=== PATIENT | male | born 1975 | race Caucasian/White ===

== ENCOUNTER 2019-01-30 04:52 | Inpatient (IN) ==
[2019-01-30] MEDS ORDERED: ASPIRIN PR ONE (06:07)
[2019-01-30] MEDS ORDERED: ASPIRIN PO ONE (06:07)
[2019-01-30 06:39] LABS: BASO# 0.03 X1000 (0.0-0.2); BASO% 0.5 % (0.0-0.8); EOS% 1.5 % (0.0-10.0); HEMATOCRIT 33.8 % (42.0-52.0); HEMOGLOBIN 10.3 g/dL (14.0-18.0); IMM GRAN# 0.02 X1000 (0.0-0.04); IMM GRAN% 0.3 % (0.0-0.5); LYMPH# 1.72 X1000 (1.2-3.4); LYMPH% 26.5 % (20.5-51.1); MCH 27.4 PG (27-31); MCHC 30.5 g/dL (33-37); MCV 89.9 FL (81-99); MONO# 0.32 X1000 (0.11-0.59); MONO% 4.9 % (1.7-9.3); MPV 10.9 FL (7.4-10.4); NEUT% 66.3 % (42.2-75.2); PLT 353 X1000 (130-400); RBC 3.76 XMIL (4.7-6.1); RDW 19.9 % (11.5-14.5); WBC 6.49 X1000 (4.8-10.8)
[2019-01-30 06:55] LABS: PTT 31.6 Seconds (22.3-41.8)
--- NOTE | 2019-01-30 07:00 | Diag Imaging Result Doc PS360 ---
EXAM: CHEST-2 VIEWS 01/30/2019 HISTORY: sob TECHNIQUE: PA and lateral chest COMMENT: There are bilateral pleural fluid collections. There is atelectasis and/or pneumonia in both lower lobes. This has not changed significantly since 01/29/2019. IMPRESSION: Bilateral pleural effusions and basilar atelectasis versus pneumonia. Electronically signed by Miah Connell 01/30/2019 6:58 AM
[2019-01-30 07:06] LABS: AGAP 12; ALB/GLOB RATIO 0.8; ALBUMIN 3.2 g/dL (3.5-5.0); ALKALINE PHOSPHATASE 129 U/L (32-122); BUN 23 mg/dL (8-22); CALCIUM 8.7 mg/dL (8.8-10.2); CHLORIDE 106 mmol/L (98-107); CK PROFILE 79 U/L (24-204); COSMO 291; CREATININE 1.1 mg/dL (0.7-1.2); ESTIMATED GFR > 60; GLUCOSE 132 mg/dL (70-104); GOT 19 U/L (10-34); GPT 13 U/L (10-44); POTASSIUM 3.8 mmol/L (3.5-5.1); SODIUM 143 mmol/L (136-145); TCO2 25 mmol/L (25-35); TOTAL BILIRUBIN 0.16 mg/dL (0.20-1.00); TOTAL PROTEIN 7.1 g/dL (6.3-8.3)
--- NOTE | 2019-01-30 07:13 | EKG Report ---
Test Performed on : 01/30/2019 05:00:52 AM Test Reason : SOB Blood Pressure : / mmHG Vent. Rate : 108 BPM Atrial Rate : 108 BPM P-R Int : 144 ms QRS Dur : 090 ms QT Int : 362 ms P-R-T Axes : 054 082 093 degrees QTc Int : 485 ms Sinus tachycardia. with occasional premature ventricular complexes. Possible Left atrial enlargement Anterior infarct , age undetermined Abnormal ECG When compared with ECG of 29-JAN-2019 01:22, (Unconfirmed) premature ventricular complexes. are now present Unconfirmed Result
[2019-01-30] MEDS ORDERED: LASIX IV ONE (08:15)
--- NOTE | 2019-01-30 08:24 | PROVIDER DOCUMENTATION ---
HPI-Respiratory General - General Chief Complaint: Shortness of Breath Stated Complaint: SHORTNESS OF BREATH Time Seen by Provider: 01/30/19 08:10 Source: patient Allergies/Adverse Reactions: Patient Allergies Allergy/AdvReac Type Severity Reaction Status Date / Time No Known Allergies Allergy Verified 01/30/19 05:16 Home Medications: Home Medication List Medication Instructions Recorded Confirmed Last Taken Type Fenofibrate [Tricor] 145 mg PO QHS #90 tab 01/05/19 01/30/19 Unknown Rx Folic Acid 1 mg PO DAILY #90 tab 01/05/19 01/30/19 Unknown Rx Insulin Humulin 70/30 [Humulin 10 unit SUBQ QPM #1 insuln.pen 01/05/19 01/30/19 Unknown Rx 70/30] Insulin Humulin 70/30 [Humulin 25 unit SUBQ ACB #1 insuln.pen 01/05/19 01/30/19 Unknown Rx 70/30] Multivitamins/Minerals [Centrum 1 ea PO DAILY #100 tab 01/05/19 01/30/19 Unknown Rx Silver] Omeprazole [Prilosec] 40 mg PO DAILY #90 cap 01/05/19 01/30/19 Unknown Rx Furosemide [Lasix] 20 mg PO DAILY #10 tab 01/29/19 01/30/19 Unknown Rx - History of Present Illness-Resp Nature of Presenting Problem: edema and orthopnea and sob worsening over past 2 weeks. got lasix 20mg/day here at ER 2 days ago: no better. DM-1 hospitalization 3 wk ago. BS have been better since w/ max BS 240 and usually 130-140. orthopnea with pressure or pulling in sternal chest w/ attempt to supine so no sllep in 2 days unless sits straight up. no fever Review of Systems - Adult - REVIEW OF SYSTEMS - ADULT Constitutional: reports: no symptoms reported, fatique. denies: fever, night sweats Eyes: reports: no symptoms reported Ears, Nose, Mouth & Throat: reports: no symptoms reported Cardiovascular: reports: no symptoms reported, see HPI, edema, palpitations Respiratory: reports: dyspnea on exertion, shortness of breath Gastrointestinal: reports: no symptoms reported Genitourinary: reports: no symptoms reported Musculoskeletal: reports: no symptoms reported Integumentary: reports: no symptoms reported Neurological: reports: no symptoms reported Psychiatric: reports: no symptoms reported Endocrine: reports: no symptoms reported Hematologic/Lymphatic: reports: no symptoms reported Allergic/Immunologic: reports: no symptoms reported All Other Systems: Reviewed and Negative Past History - Adult - PAST MEDICAL HISTORY-ADULT Review of Records: reports: Old Records Reviewed, Nursing Assessment Review, Medications Reviewed, Social history reviewed & non-contributory. Major Childhood Illnesses: reports: denies history Cardiovascular: reports: denies history Respiratory: reports: denies history Gastrointestinal: reports: denies history Obstetrical/Gynecological: reports: denies history Genitourinary: reports: denies history Musculoskeletal: reports: denies history Neurological: reports: denies history Endocrine/Immune: reports: denies history Other Conditions: reports: denies history - IMMUNIZATION STATUS Childhood Immunizations: See Nurse Assessment Flu Vaccine: See Nurse Assessment - FAMILY HISTORY Family History: reviewed, not pertinent Physical Exam-General - PHYSICAL EXAM-ADULT Initial Vital Signs Reviewed: Yes - CONSTITUTIONAL General Appearance: alert, no apparent distress - EYES Eyes: PERRL/EOMI - HEAD, EARS, NOSE, MOUTH & THROAT HENMT: moist mucous membranes - NECK Neck: full range of motion - RESPIRATORY Respiratory: lungs clear, no accessory muscle use, other (UPPER LUNGS FIELD CLEAR, LOWER MAHMOOD DULL, CAPRICE ON RIGHT) - CARDIOVASCULAR Cardiovascular: regular rate, rhythm, tachycardia, other (PMI HEAVE) - GASTROINTESTINAL (ABDOMEN) Abdominal Exam: non tender, soft, no organomegaly - MUSCULOSKELETAL Extremity: non-tender, normal gait, pedal edema - SKIN Integumentary: normal color, normal turgor, warm/dry - 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 as 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, grossly normal, no motor/sensory deficits - PSYCHIATRIC Psych/Mental Status: normal mood/affect, normal thought content, normal thought process, oriented x 3 Progress - PLAN OF CARE/RESULTS Progress/Plan/Lab Results: Vital Signs - 8 hr 01/30/19 05:08 Temperature 98.3 F Pulse Rate 114 H Respiratory Rate 20 Blood Pressure 115/105 O2 Sat by Pulse Oximetry 98 Laboratory Results - last 24 hr 01/30/19 01/30/19 01/30/19 05:32 05:32 05:32 WBC 6.49 RBC 3.76 L Hgb 10.3 L Hct 33.8 L MCV 89.9 MCH 27.4 MCHC 30.5 L RDW Std Deviation 19.9 H Plt Count 353 MPV 10.9 H Immature Gran % (Auto) 0.3 Neut % (Auto) 66.3 Lymph % (Auto) 26.5 [place] % (Auto) 4.9 Eos % (Auto) 1.5 Baso % (Auto) 0.5 Immature Gran # (Auto) 0.02 Neut # (Auto) 4.30 Lymph # (Auto) 1.72 [place] # (Auto) 0.32 Eos # (Auto) 0.10 Baso # (Auto) 0.03 PT INR PTT (Actin FS) Sodium 143 Potassium 3.8 Chloride 106 Carbon Dioxide 25 Anion Gap 12 BUN 23 H Creatinine 1.1 Estimated GFR/1.73 m2 > 60 BUN/Creatinine Ratio 21 Glucose 132 H Calculated Osmolality 291 Calcium 8.7 L Total Bilirubin 0.16 L AST 19 ALT 13 Alkaline Phosphatase 129 H Creatine Kinase 79 Troponin T Mut-M-Cehugmloepq Pept 33321 H Total Protein 7.1 Albumin 3.2 L Globulin 3.9 Albumin/Globulin Ratio 0.8 01/30/19 01/30/19 05:32 05:32 WBC RBC Hgb Hct MCV MCH MCHC RDW Std Deviation Plt Count MPV Immature Gran % (Auto) Neut % (Auto) Lymph % (Auto) [place] % (Auto) Eos % (Auto) Baso % (Auto) Immature Gran # (Auto) Neut # (Auto) Lymph # (Auto) [place] # (Auto) Eos # (Auto) Baso # (Auto) PT 14.0 INR 1.00 PTT (Actin FS) 31.6 Sodium Potassium Chloride Carbon Dioxide Anion Gap BUN Creatinine Estimated GFR/1.73 m2 BUN/Creatinine Ratio Glucose Calculated Osmolality Calcium Total Bilirubin AST ALT Alkaline Phosphatase Creatine Kinase Troponin T 0.020 Xfm-U-Zkiwrlcdtsz Pept Total Protein Albumin Globulin Albumin/Globulin Ratio Orders Category Date Time Status Admit - [facility] Routine AdmDCTranf 01/30/19 10:00 Active Activity - Up with Assistance ORDERED Care 01/30/19 10:00 Active Apply Mechanical Device [QM] ORDERED Care 01/30/19 10:00 Active Cardiac Monitoring DIRECTED Care 01/30/19 06:08 Completed FSBS/Accucheck Result AC + HS Care 01/30/19 10:00 Active Intake and Output-Strict ORDERED Care 01/30/19 10:00 Active Oxygen Therapy- ED Nursing DIRECTED Care 01/30/19 06:08 Completed Saline Loc NOW Care 01/30/19 06:08 Completed Saline Loc NOW Care 01/30/19 08:15 Completed Vital Signs Order Q 4-HR ASSESS Care 01/30/19 10:00 Active Z-Document. for Tele Applied ORDERED Care 01/30/19 10:00 Active Heart Healthy Diet Diet 01/30/19 10:01 Active CHEST-2 VIEWS [RAD] DAILY Exams 01/31/19 06:00 Ordered CHEST-2 VIEWS [RAD] DAILY Exams 02/01/19 06:00 Ordered CHEST-2 VIEWS [RAD] DAILY Exams 02/02/19 06:00 Ordered CHEST-2 VIEWS [RAD] Stat Exams 01/30/19 06:08 Completed BASIC METABOLIC PANEL [CHEM] Routine Lab 01/31/19 06:00 Ordered CBC WITH DIFF [HEME] Routine Lab 01/31/19 06:00 Ordered CBC WITH ELECTRONIC DIFF [HEME] Stat Lab 01/30/19 05:32 Completed CK PROFILE [SP CHEM] Stat Lab 01/30/19 05:32 Completed COMPREHENSIVE METABOLIC PANEL [CHEM] Stat Lab 01/30/19 05:32 Completed PRO B-NATRIURETIC PEPTIDE Stat Lab 01/30/19 05:32 Completed PROTIME WITH INR [COAG] Stat Lab 01/30/19 05:32 Completed PTT [COAG] Stat Lab 01/30/19 05:32 Completed TROPONIN T Stat Lab 01/30/19 05:32 Completed Acetaminophen [Tylenol] Med 01/30/19 10:00 Active 650 mg PO Q6H PRN PRN Aspirin Med 01/30/19 06:07 Discontinued 300 mg DE NOW ONE Aspirin Med 01/30/19 06:07 Discontinued 325 mg PO NOW ONE Fenofibrate [Tricor] Med 01/30/19 21:00 Active 145 mg PO QHS Folic Acid Med 01/31/19 09:00 Active 1 mg PO DAILY Furosemide [Lasix] Med 01/30/19 21:00 Active 40 mg IV Q12H Furosemide [Lasix] Med 01/30/19 08:15 Discontinued 80 mg IV NOW ONE Insulin Humulin 70/30 [Humulin 70/30] Med 01/30/19 21:00 Active 10 unit SUBQ QPM Insulin Humulin 70/30 [Humulin 70/30] Med 01/31/19 07:00 Active 25 unit SUBQ ACB Insulin Lispro [Humalog] Med 01/30/19 10:00 Discontinued See Protocol SUBQ NOW ONE Multivitamins/Minerals [Centrum Silver] Med 01/31/19 09:00 Active 1 each PO DAILY Omeprazole [Prilosec] Med 01/31/19 09:00 Active 40 mg PO DAILY Ondansetron [Zofran] Med 01/30/19 10:00 Active 4 mg IV Q4H PRN PRN Telemetry [OM.EQ] Routine Oth 01/30/19 10:00 Active EKG [EKG] Stat Ther 01/30/19 04:57 Draft EKG [EKG] Stat Ther 01/30/19 08:16 Ordered Echo Spec/Color Dop W/O Contra Routine Ther 01/30/19 10:00 Ordered Transfer/Admit Order [TRANSFER] Routine Transfer 01/30/19 09:02 Completed Result Diagrams: 01/30/19 05:32 01/30/19 05:32 - EKG 1 Time of EKG reading by physician:: 05:00 EKG Read and Signed by:: Rogers Lorenzo EKG Interpretation (*Must complete 3 of following elements*): Abnormal Rate: 108 Rhythm: sinus tachycardia with occasional premature ventricular complexes DE Interval: normal Comments: possible left atrial enlargement; anterior infarct, age undetermined - CONSULTS/PCP/HOSPITALIST Notification #1 *Consult/PCP/Hospitalist*: KELECHI PROCTOR Time Discussed: 08:25 Consult Disposition: Admit Departure - Departure Date of Disposition Decision: 01/30/19 Time of Disposition Decision: 08:27 DIAGNOSIS: CHF (congestive heart failure), Pleural effusion due to CHF (congestive heart failure) Disposition: ADMITTED INPATIENT 09 Certified Medical Emergency: Emergent Condition: Fair Referrals and Follow-Ups: None,PCP [Primary Care Provider] - - Critical Care Note This patient required my direct & personal management of CC.: No Attestation - Physician/ CHEIKH Attestation The physician spent face to face time with patient:: Yes Advanced Practice Provider documentation review:: Supervising physician onsite and consulted in the evaluation and care of this patient. The physician did have a face to face encounter with the patient.
[2019-01-30] MEDS ORDERED: TYLENOL PO PRN (10:00)
[2019-01-30] MEDS ORDERED: ZOFRAN IV PRN (10:00)
[2019-01-30] MEDS ORDERED: HUMALOG SUBQ ONE (10:00)
--- NOTE | 2019-01-30 10:18 | HISTORY AND PHYSICAL ---
PRIMARY CARE PHYSICIAN: MANDA Bergeron at [facility]. CHIEF COMPLAINT: Worsening shortness of breath, orthopnea and edema over 2 weeks that has progressively worsened. HISTORY OF PRESENTING ILLNESS: This is a 43-year-old male, who presents to [facility] with complaints of worsening shortness of breath, orthopnea and edema over 2 weeks. He was apparently seen in the emergency room on 01/29/2019 in the behavioral scientist hours around 1:30 a.m. for complaints of shortness of breath. They did discuss admission with him at that time for further evaluation and echo, but the patient wanted to follow up with his PCP as an outpatient, so they discharged him home with a prescription for Lasix 20 mg p.o. daily, and he was to follow up with his primary care. He states that the shortness of breath has worsened to the point that he cannot lay down at all. He has to sleep sitting up. His workup in the emergency room showed his O2 saturation on arrival to be 98 on room air. His proBNP was 10,659. Chest x-ray showed bilateral pleural effusion and basilar atelectasis versus pneumonia. So, he is being admitted to the medical unit for further evaluation and treatment. PAST MEDICAL HISTORY: Diabetes type 1 and hyperlipidemia. PAST SURGICAL HISTORY: None. FAMILY HISTORY: His mom had a CVA and diabetes. Father had coronary artery disease with stent placement. SOCIAL HISTORY: Currently lives with family. Denies any tobacco, alcohol or illicit drug use. ALLERGIES: He has no known drug allergies. HOME MEDICATIONS: He takes Tricor 145 mg p.o. at bedtime, multivitamin 1 p.o. daily, folic acid 1 mg p.o. daily, Humulin 70/30 25 units subcutaneous q.a.m. and 10 units subcutaneous q.p.m., Lasix 20 mg p.o. daily that will be held, and Prilosec 40 mg p.o. daily. LABORATORY DATA: Showed a white blood cell count of 6.49, hemoglobin 10.3, hematocrit 33.8, platelets 353. PT and INR of 14 and 1. Sodium of 143, potassium 3.8, chloride 106, CO2 25. BUN of 23, creatinine 1.1, glucose 132. ProBNP of 10,659 with a creatine kinase of 79, troponin of 0.020. X-RAY DATA: EKG with sinus tachycardia with occasional PVCs at 108. Chest x- ray showed bilateral pleural effusions and basilar atelectasis versus pneumonia. REVIEW OF SYSTEMS: He denied any fever, chills, blurred vision, dizziness, chest pain, coughing. He has had increased shortness of breath, orthopnea to the point he is having to sit up to sleep, can no longer lie down at any level. Denied any abdominal pain, constipation, diarrhea, burning or hurting with urination. PHYSICAL EXAMINATION: VITAL SIGNS: On arrival he had a temperature of 98.3 degrees, pulse 114, respirations 20, blood pressure 115/105, satting 98% on room air. GENERAL: This is a 43-year-old male, who is sitting on the side of the bed and answers questions appropriately. HENT: Normocephalic, atraumatic. Normal ENT inspection. Oropharynx and nares are clear. EYES: Pupils are equal, round, and reactive to light and accommodation. Extraocular movements are intact. NECK: Normal inspection. Normal range of motion. LUNGS: Clear to his upper lobes. Very diminished to the bilateral lower lobes. Equal lung expansion. Chest wall movement noted. HEART: With regular rate and rhythm. No murmurs, rubs, or gallops. He does have some pedal edema noted. ABDOMEN: Soft, nontender, nondistended. Bowel sounds are present x4 quadrants. MUSCULOSKELETAL: He has 5/5 strength x4 extremities. NEUROLOGICAL: The cranial nerves 2-12 appear grossly intact. ASSESSMENT: 1. Bilateral pleural effusion. 2. Possible new onset congestive heart failure. 3. Shortness of breath with orthopnea. PLAN: He will be admitted to the medical unit and placed on telemetry. O2 per protocol. We are going to check an echocardiogram today. We will do a chest x-ray two-view daily. He is getting a dose of Lasix 80 mg IV in the emergency room now, and then he will get 40 mg IV q. 12 hours. We will recheck a CBC and BMP in the a.m. Continue home medications as previously identified, and further orders after being seen by attending. We will also place him on pattern blood sugars with sliding scale insulin. Dictated by MANDA Craft for Marcos Torres MD cc: Susan MANDA Young CRNP Agree with above. the following is my own face to face assessment. patient with dyspnea, mild pulmonary edema, bilateral effusions, elevated BNP. strong suspicion for new onset CHF. on exam lung sounds are decreased at both bases and a few scattered crackles elsewhere. will diuresis and obtain echo and further treatment based on those results and response to lasix. MTDD
--- NOTE | 2019-01-30 14:10 | ECHO REPORT ---
ORDER DATE: 01/30/2019 ECHOCARDIOGRAPHIC MEASUREMENTS: 1. Septal thickness 1.3. 2. Left ventricular internal diameter diastole 4.9. 3. Posterior wall thickness 1.3. 4. Left ventricular internal diameter systole 4.1. 5. Left atrium 4.7. 6. Aortic root 3.1. SUMMARY: 1. Adequate quality study. 2. Aortic valve is trileaflet and opens normally on two-dimensional images. Peak gradient across the aortic valve is less than 10 mmHg. There is very mild aortic regurgitation. Mitral, tricuspid, and pulmonic valves are without evidence of structural abnormality with mild to moderate mitral regurgitation mild tricuspid regurgitation, and trace pulmonic insufficiency. The estimated systolic PA pressure by Doppler is 85 to 90 mmHg suggesting severe pulmonary hypertension. Aortic root is normal in size. 3. Normal left ventricular chamber size with mild concentric left hypertrophy is demonstrated. Estimated left ventricular ejection fraction is approximately 30 to 35 percent in the setting of global hypokinesis. Left atrium is moderately enlarged. Right atrium and right ventricle are normal size with grossly preserved right ventricular systolic function. 4. Small pericardial effusion without evidence of tamponade physiology. 5. Appearance of inferior vena cava suggests elevated central venous pressure. cc: MD Susan Yoder CRNP
[2019-01-30] MEDS: HUMALOG SUBQ SCH ×2 (17:03→21:48)
[2019-01-30] MEDS ORDERED: INSULIN PEN NEEDLES ONE (21:00)
[2019-01-30] MEDS: HUMULIN 70/30 SUBQ SCH (21:48)
[2019-01-30] MEDS: TRICOR PO SCH (21:53)
[2019-01-30] MEDS: LASIX IV SCH (21:53)
[2019-01-31] MEDS: HUMALOG SUBQ SCH ×5 (01:29→20:28)
[2019-01-31 07:26] LABS: BASO# 0.02 X1000 (0.0-0.2); BASO% 0.3 % (0.0-0.8); EOS# 0.09 X1000 (0.0-0.7); EOS% 1.4 % (0.0-10.0); HEMOGLOBIN 9.9 g/dL (14.0-18.0); IMM GRAN# 0.02 X1000 (0.0-0.04); IMM GRAN% 0.3 % (0.0-0.5); LYMPH% 18.9 % (20.5-51.1); MCH 27.7 PG (27-31); MCHC 30.9 g/dL (33-37); MCV 89.6 FL (81-99); MONO# 0.39 X1000 (0.11-0.59); MONO% 6.2 % (1.7-9.3); MPV 10.2 FL (7.4-10.4); NEUT# 4.62 X1000 (1.4-6.5); NEUT% 72.9 % (42.2-75.2); PLT 319 X1000 (130-400); RBC 3.57 XMIL (4.7-6.1); RDW 19.1 % (11.5-14.5); WBC 6.34 X1000 (4.8-10.8)
[2019-01-31 08:13] LABS: AGAP 8; BUN 26 mg/dL (8-22); CALCIUM 8.5 mg/dL (8.8-10.2); CHLORIDE 103 mmol/L (98-107); COSMO 287; ESTIMATED GFR > 60; GLUCOSE 119 mg/dL (70-104); SODIUM 141 mmol/L (136-145); TCO2 30 mmol/L (25-35)
[2019-01-31] MEDS ORDERED: POTASSIUM CHLORIDE 60 MEQ in NS 500 ML IV ONE (09:18)
[2019-01-31] MEDS: PRILOSEC PO SCH (09:41)
[2019-01-31] MEDS: FOLIC ACID PO SCH (09:41)
[2019-01-31] MEDS: CENTRUM SILVER PO SCH (09:41)
[2019-01-31] MEDS: HUMULIN 70/30 SUBQ SCH ×2 (09:42→20:27)
[2019-01-31] MEDS: LASIX IV SCH ×2 (09:42→20:26)
[2019-01-31] MEDS ORDERED: KLOR-CON PO ONE (09:53)
[2019-01-31] MEDS: COZAAR PO SCH (10:37)
[2019-01-31] MEDS: COREG PO SCH ×2 (10:37→20:26)
--- NOTE | 2019-01-31 13:11 | Diag Imaging Result Doc PS360 ---
EXAM: CHEST-2 VIEWS INDICATION: Rod Pleural Effusions TECHNIQUE: 2 views COMPARISON: None. FINDINGS: Right pleural effusion appears to have decreased in size during the interval. The left effusion is stable to slightly smaller. No new consolidations are identified. The cardiac silhouette is stable. IMPRESSION: Decrease in size of the pleural effusions, especially on the right. Electronically signed by Jose David Dominique 01/31/2019 1:08 PM
--- NOTE | 2019-01-31 15:16 | PROGRESS NOTE ---
DATE: 01/31/2019 INTERVAL HISTORY: The patient's dyspnea largely resolved. Still some edema, but significantly improved. No new complaints. No acute events overnight. REVIEW OF SYSTEMS: Twelve point review of systems is negative except as per interval history. LABORATORY DATA: WBCs is 6.3, hemoglobin 9.9, hematocrit 32, platelets 319,000. Sodium 141, potassium 3, BUN 26, creatinine 1.0, glucose 70-291. BNP is 10,659. IMAGING: Echocardiogram, ejection fraction 30%-35% with global hypokinesis, markedly elevated pulmonary pressures is 85-90. No significant valvular abnormalities. Chest x-ray, decrease in size of pleural effusions especially on the right. VITAL SIGNS: T-max 98.4 degrees, pulse 64, respirations 16, blood pressure 127/81, O2 saturation 97% on room air. PHYSICAL EXAMINATION: General: No acute distress. Vitals: As above. HEENT: Normocephalic and atraumatic. Moist mucous membranes. Neck: No cervical adenopathy. Cardiovascular: Regular rate and rhythm. No murmurs, rubs, or gallops. Pulmonary: Remains slightly decreased at the bases, otherwise largely clear to auscultation bilaterally. Abdomen: Soft, nontender, and nondistended. Bowel sounds positive. Extremities: Peripheral pulses intact. Trace to 1+ pitting edema in bilateral lower extremities, improved from previous. Neurologic: Cranial nerves grossly intact. No focal deficits identified. Psychiatric: Normal mood and affect. Awake, alert, and oriented x3. Skin: No new rashes or lesions identified. ASSESSMENT AND PLAN: 1. Acute systolic congestive heart failure and pulmonary hypertension. The patient's dyspnea and effusions appear to be related to previously undiagnosed congestive heart failure. Echocardiogram showing a low ejection fraction of 30%-35%, and also severe pulmonary hypertension with pulmonary pressures of 85-90. This does appear to be improving rapidly with aggressive diuresis. Continue diuresis, and we will get Cardiology to see him. We will go and start him on losartan and Coreg. He will likely need an ischemic workup at some point, but given his rapid progress it may be able to be done as an outpatient. 2. Diabetes mellitus. Fasting sugar this morning good, but has been elevated since then. We will see what his morning dose of 70/30 does, but may need to increase sliding scale and/or p.m. 70/30. 3. Hyperlipidemia. We will start the patient on statin. 4. Hypokalemia. We will replete and monitor. 5. Anemia. Hemoglobin and hematocrit stable. Likely anemia of chronic disease. Iron studies pending.
--- NOTE | 2019-01-31 19:08 | CONSULTATION ---
DATE OF CONSULTATION: 01/31/2019 IMPRESSION: 1. Biventricular congestive heart failure with significant left ventricular systolic dysfunction and severe pulmonary hypertension. 2. Type 2 diabetes mellitus. 3. Hyperlipidemia. 4. Previous polysubstance abuse, but not parenteral. 5. Admission approximately 1 month ago for diabetic ketoacidosis with possible associated sepsis. It is noteworthy that patient had blood culture positive for Staph aureus during that hospital stay. However, he has not had any recurrence of fevers or chills. RECOMMENDATIONS: 1. Continue diuresis with intravenous Lasix. 2. Agree with carvedilol and losartan. 3. Surveillance blood cultures. 4. Favor keeping patient in the hospital given the severity of his illness. He ultimately needs to have right and left cardiac catheterization and selective coronary angiography once he is improved from a standpoint of his congestive heart failure. 5. If blood cultures again positive for Staph aureus, patient will need transesophageal echocardiography. 6. Consider thoracentesis, particularly on the right, in order to accelerate patient's clinical improvement. HISTORY: This 43-year-old, white male, with past history of insulin-dependent diabetes mellitus for approximately 17 years and previous polysubstance abuse and alcohol abuse discontinued last July, was admitted with dyspnea and orthopnea which emerged over the last couple of weeks. It is noteworthy that he was hospitalized 1 month ago with diabetic ketoacidosis and was quite ill. He was thought to have possible associated sepsis potentially from pneumonia. His chest x-ray was not really that impressive. He did have a positive blood culture for Staph aureus. He was treated for diabetic ketoacidosis and also received antibiotic therapy and improved clinically. About 2 weeks ago, he started having dyspnea symptoms and has progressed. He describes recent development of orthopnea. He has been evaluated in the emergency room and admitted. Echocardiography indicated depressed left ventricular systolic function and severe pulmonary hypertension. There was mild to moderate mitral regurgitation as well as very mild aortic regurgitation. Very small pericardial effusion was present. Bilateral pleural effusions present. Cardiology consultation requested as he was started on diuretic therapy, low-dose Coreg and losartan. He has not had any recent fever or chills. He has somewhat of a flattened affect. In discussing his care with his family, they indicate that his 3 years ago. He also had a significant relationship last year that unexpectedly ended and seemed to devastate him emotionally. He had issues with polysubstance abuse and alcohol abuse thereafter as well as depression. His family indicates that he was taking Adderall and opioids, but not any parenteral medications. He was also drinking a fair amount of alcohol. This all was discontinued back in July 2018. He has 3 children, one son who is a young adult, another son who is a teenager and a daughter, who is age 10. He works in the [employer] business which is [employer]. 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 He has never smoked. PAST MEDICAL HISTORY: 1. Diabetes mellitus, requiring insulin for approximately 17 years. 2. Hyperlipidemia. PAST SURGICAL HISTORY: None. ALLERGIES: He has no known drug allergies. MEDICATIONS PRIOR TO ADMISSION: As listed. SOCIAL HISTORY: He currently lives with family. He does not currently use alcohol or illicit drugs. He has never smoked. However, he did have a period where he used Adderall and opioids as well as excessive alcohol consumption after a significant relationship break-up last year. Family is very supportive. He works in the [employer] business. FAMILY HISTORY: Negative for premature coronary disease. REVIEW OF SYSTEMS: Pulmonary: Noteworthy for dyspnea and orthopnea. Gastrointestinal: Negative. Constitutional: Negative. Psychiatric: Review of systems noteworthy for a period of depression and anxiety last year following significant break up. He also describes episodes of feeling an anxiety feeling in his chest that has been occurring with some regularity for the past year. He related to his passing away 3 years ago. Remainder of review of systems negative/noncontributory with 14 total systems reviewed. PHYSICAL EXAMINATION: General: This is a thin, adult, white male, in no distress on room air. Vital signs: Blood pressure 137/93, heart rate 104 and regular. Oxygen saturation 100%. HEENT: Extraocular movements appear intact. Sclerae seemed somewhat pale. Mucous membranes moist. Neck: Supple without significant jugular venous distention. There are no carotid bruits. Chest: Auscultation of the chest reveals diminished breath sounds at the bases bilaterally, more so on the right base. Cardiac Exam: Reveals a regular rate and rhythm without appreciable murmur. No gallop. Abdomen: Soft. Bowel sounds are normal. Extremities: Without edema. Neurologic: Reveals him to be alert and fully oriented. Speech is fluent. He moves all 4 extremities equally well. Skin: Warm and dry. Psychiatric: Exam reveals his mood to be mildly depressed and his affect somewhat flat. PERTINENT DATA: Twelve-lead EKG demonstrates sinus tachycardia with occasional premature ventricular complex. Left atrial abnormality. Abnormal precordial R-wave progression, cannot exclude previous anterior infarct of undetermined age and nonspecific T-wave abnormality. LABORATORY DATA: Includes a white blood cell count 6.34, hematocrit 32.0, hemoglobin 9.9, platelet count 319. Sodium 141, potassium 3.0, chloride 103, carbon dioxide 30, BUN 26, creatinine 1.0, glucose 119. Troponin-T is 0.020. Pro B-natriuretic peptide level 10,659. cc: Hussain Crook MD
[2019-01-31] MEDS: LIPITOR PO SCH (20:26)
[2019-01-31] MEDS: TRICOR PO SCH (20:26)
[2019-02-01] MEDS: HUMULIN 70/30 SUBQ SCH ×2 (06:20→21:08)
[2019-02-01] MEDS: HUMALOG SUBQ SCH ×4 (06:21→21:08)
[2019-02-01 07:38] LABS: CHOLESTEROL 257 mg/dL (0-200); HDL 58 mg/dL (35-55); LDL 176 mg/dL; TRIGLYCERIDES 116 mg/dL (39-160); VLDL 23 mg/dL
[2019-02-01 07:40] LABS: IRON SATURATION 17 %; TIBC 246 ug/dL; TOTAL IRON 43 ug/dL (53-167); UNBOUND IRON 203 ug/dL (112-346)
[2019-02-01] MEDS: CENTRUM SILVER PO SCH (08:18)
[2019-02-01] MEDS: FOLIC ACID PO SCH (08:18)
[2019-02-01] MEDS: COZAAR PO SCH (08:18)
[2019-02-01] MEDS: ASPIRIN PO SCH (08:19)
[2019-02-01] MEDS: LASIX IV SCH ×2 (08:19→21:08)
[2019-02-01] MEDS: PRILOSEC PO SCH (08:19)
[2019-02-01] MEDS: COREG PO SCH ×2 (08:22→21:09)
--- NOTE | 2019-02-01 11:55 | Diag Imaging Result Doc PS360 ---
EXAM: CHEST-2 VIEWS 02/01/2019 HISTORY: Rod Pleural Effusions TECHNIQUE: PA and lateral chest COMMENT: There are bilateral pleural effusions. There is bibasilar atelectasis. There may be mild degree of pulmonary edema in the parahilar regions. There has been no significant change in the appearance the chest since the previous study of 01/31/2019. IMPRESSION: Bilateral pleural effusions atelectasis and mild pulmonary edema. Electronically signed by Miah Connell 02/01/2019 11:52 AM
--- NOTE | 2019-02-01 12:09 | CARDIOLOGY PROGRESS NOTE ---
DATE: 02/01/2019 CHIEF COMPLAINT: Shortness of breath, swelling. SUBJECTIVE: Mr. Tapia is doing better. His breathing is more comfortable. He does get spells of paroxysmal nocturnal dyspnea. OBJECTIVE: Vital signs: Blood pressure is 139/93, temperature 97.5, pulse 109, respirations 18. General: He is awake, alert, oriented, no distress. HEENT: Unremarkable. Chest sounds clear to auscultation and percussion. Heart: Sounds are regular and rhythmic. I do not hear any definite gallop or murmur. Abdomen: His abdomen is soft. Extremities: Show trace to 1+ edema bilateral. Neurologic exam: Follows commands, moves all 4 extremities. IMPRESSION: A patient with: 1. Increasing dyspnea and swelling due to congestive heart failure systolic functional class III- IV. 2. Long-term diabetes mellitus type 1 suboptimally controlled. Hemoglobin A1c has been greater than 11% on previous checkup. 3. Hyperlipidemia, severe. 4. Reported history of opiate use and I believe alcohol in the past. RECOMMENDATIONS: 1. At this point in time, will continue to try to optimize his heart failure management with combination of CAMDEN inhibitors and beta-blockers. Will have to probably use loop diuretics judiciously to prevent renal dysfunction. 2. We will consider doing a myocardial perfusion stress test on him to have a general idea of how bad the suspected coronary disease is. At some point like Dr. Crook said, he will probably require a right and left heart catheterization for definitive diagnosis. Further advice will be forthcoming. cc: Smith Gonsalez MD [facility]
--- NOTE | 2019-02-01 13:52 | PROGRESS NOTE ---
DATE: 02/01/2019 INTERVAL HISTORY: Patient's dyspnea has largely resolved at this point, but still complaining of some lower extremity edema. No acute events overnight. No other complaints. REVIEW OF SYSTEMS: A 12 point review of systems negative except as per interval history. LABS: Glucose 130. VITALS: T-max 98.2, pulse of 107, blood pressure 110.92, O2 saturation percent. PHYSICAL EXAMINATION: General: No acute distress. Vitals: As above. HEENT: Normocephalic, atraumatic. Moist mucous membranes. Neck: No cervical adenopathy Cardiovascular: Minimally tachycardic, regular rhythm. No murmurs, rubs or gallops. Pulmonary: Remains decreased at the bases, right greater than left. Otherwise, clear to auscultation bilaterally. Abdomen: Soft, nontender, nondistended. Bowel sounds positive. Extremities: Peripheral pulses intact. 1+ pitting edema in bilateral lower extremities essentially stable. Neurologic: Cranial nerves grossly intact. No focal deficits. Psychiatric: Normal mood and affect. Awake, alert, oriented x3. No rashes or lesions identified. ASSESSMENT/PLAN: 1. Acute systolic congestive heart failure and pulmonary hypertension. His dyspnea infusions appear to be related to previously undiagnosed congestive heart failure and pulmonary hypertension. Echocardiogram showing ejection fraction 30 to 35 and also severe pulmonary hypertension with pulmonary pressures 85 to 90. The patient's symptoms initially improved rapidly with diuresis. Some improvement in chest x-ray from admission. However, still with decreased breath sounds at the bases and effusions on x-ray. We will continue diuresis and monitor. The patient has been very reluctant to undergo thoracentesis given he is largely asymptomatic and saturating well this can probably be deferred at this time. We will get Cardiology considering left and right heart catheterization in the near future. We will await further recommendations. Continue losartan and Coreg. 2. Diabetes mellitus. Fasting sugars good but elevated with meals. We will increase sliding scale insulin and monitor. 3. Hyperlipidemia. Continue statin. 4. Hypokalemia repleted. Repeat labs pending. 5. Anemia. Blood counts stable on last check. Iron studies with no evidence of deficiency. Likely anemia of chronic disease. No need for further workup at this time.
[2019-02-01] MEDS ORDERED: ROCEPHIN 1 GM in NS 50 ML IV SCH (15:00)
[2019-02-01] MEDS ORDERED: VANCOMYCIN IV PER PHARMACY MISC SCH (15:00)
[2019-02-01] MEDS ORDERED: VANCOMYCIN 2,200 MG in NS 500 ML IV ONE (17:00)
[2019-02-01] MEDS: LIPITOR PO SCH (21:09)
[2019-02-01] MEDS: TRICOR PO SCH (21:09)
[2019-02-02] MEDS: HUMALOG SUBQ SCH ×4 (06:46→21:42)
[2019-02-02] MEDS: HUMULIN 70/30 SUBQ SCH ×3 (06:57→20:28)
[2019-02-02] MEDS ORDERED: HUMULIN 70/30 SUBQ SCH (07:00)
[2019-02-02 07:31] LABS: BASO# 0.01 X1000 (0.0-0.2); BASO% 0.1 % (0.0-0.8); EOS# 0.12 X1000 (0.0-0.7); EOS% 1.7 % (0.0-10.0); HEMATOCRIT 33.8 % (42.0-52.0); HEMOGLOBIN 10.2 g/dL (14.0-18.0); IMM GRAN# 0.02 X1000 (0.0-0.04); IMM GRAN% 0.3 % (0.0-0.5); LYMPH# 1.71 X1000 (1.2-3.4); LYMPH% 24.2 % (20.5-51.1); MCH 27.3 PG (27-31); MCHC 30.2 g/dL (33-37); MCV 90.4 FL (81-99); MONO# 0.39 X1000 (0.11-0.59); MONO% 5.5 % (1.7-9.3); MPV 11.1 FL (7.4-10.4); NEUT# 4.83 X1000 (1.4-6.5); NEUT% 68.2 % (42.2-75.2); PLT 349 X1000 (130-400); RBC 3.74 XMIL (4.7-6.1); RDW 18.5 % (11.5-14.5); WBC 7.08 X1000 (4.8-10.8)
[2019-02-02 07:55] LABS: AGAP 11; BUN 35 mg/dL (8-22); CHLORIDE 100 mmol/L (98-107); COSMO 297; CREATININE 1.3 mg/dL (0.7-1.2); ESTIMATED GFR > 60; GLUCOSE 274 mg/dL (70-104); POTASSIUM 3.7 mmol/L (3.5-5.1); SODIUM 140 mmol/L (136-145); TCO2 29 mmol/L (25-35)
[2019-02-02] MEDS: LASIX IV SCH ×2 (08:15→21:38)
[2019-02-02] MEDS: ASPIRIN PO SCH (08:15)
[2019-02-02] MEDS: CENTRUM SILVER PO SCH (08:15)
[2019-02-02] MEDS: COZAAR PO SCH (08:15)
[2019-02-02] MEDS: PRILOSEC PO SCH ×2 (08:15→08:16)
[2019-02-02] MEDS: FOLIC ACID PO SCH (08:15)
[2019-02-02] MEDS: COREG PO SCH ×2 (08:15→21:38)
--- NOTE | 2019-02-02 09:03 | PROGRESS NOTE ---
DATE: 02/02/2019 SUBJECTIVE: Overall, the patient notes he is feeling a little bit better. He is having less shortness of breath, less coughing. PHYSICAL EXAMINATION: Vital Signs: Reviewed. Temp 98.6 degrees, pulse 60, respiratory rate 16, BP 127/84, saturating 98% on room air. General: The patient is awake, alert. He is sitting on the side of the bed. He is in no current respiratory distress. HEENT: Normocephalic. Neck: Supple. Cardiovascular: Regular rate. Chest: Decreased at the bases, otherwise clear. No crackles. Abdomen: Soft, nondistended. Extremities: There is 1+ edema in lower extremities. Moves all extremities well. Neurologic: No focal changes. He is awake, alert, oriented. ASSESSMENT: 1. Systolic congestive heart failure, acute on chronic. 2. Pulmonary hypertension. 3. Diabetes. 4. Hyperlipidemia. 5. Hypokalemia, resolved. 6. Suspected coronary disease per Cardiology. PLAN: Will continue the patient in the hospital. Will slightly increase his 70/30 insulin. Will continue to follow. Cardiology is deciding between stress testing and definitive heart catheterization. cc: Brandon Cobos MD
--- NOTE | 2019-02-02 09:12 | Diag Imaging Result Doc PS360 ---
EXAM: CHEST-2 VIEWS 02/02/2019 HISTORY: Rod Pleural Effusions TECHNIQUE: PA and lateral chest COMMENT: There are bilateral pleural effusions. There is bibasilar atelectasis. The volume of pleural fluid on the left is slightly smaller than on the previous study of 02/01/2019. Otherwise there has been no appreciable change. IMPRESSION: Slightly improved left pleural effusion. Electronically signed by Miah Connell 02/02/2019 9:10 AM
--- NOTE | 2019-02-02 10:25 | CARDIOLOGY PROGRESS NOTE ---
DATE: 02/02/2019 CHIEF COMPLAINT: Dyspnea, swelling. SUBJECTIVE: Mr. Tapia seems to be doing better. He is ambulating. He is not having any chest pain. Still has some slight swelling. OBJECTIVE: Blood pressure is 127/84, temperature 98.6, pulse 60, respirations 16. He is awake, alert and oriented. No distress. HEENT is unremarkable. Chest: Sounds clear to auscultation and percussion. Heart sounds are regular and rhythmic. I do not hear a gallop or murmur. His abdomen is slightly prominent. Extremities showed trace edema. Neurologic: Follows commands, moves all 4 extremities. IMPRESSION: 1. The patient presented with systolic heart failure. He is functional class 3 to 4. Etiology of this could be severe coronary heart disease. 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 3. Hyperlipidemia, severe. RECOMMENDATIONS: At this time, we will arrange for a myocardial perfusion stress test using a walking Lexiscan protocol. Further intervention will depend on the results of that study. If indeed we find that he has significant inducible ischemia, we will certainly proceed with a right and left heart catheterization. cc: Smith Gonsalez MD [facility]
[2019-02-02] MEDS: VANCOMYCIN 1,800 MG in NS 250 ML IV SCH (12:42)
[2019-02-02] MEDS: TRICOR PO SCH (21:38)
[2019-02-02] MEDS: LIPITOR PO SCH (21:38)
[2019-02-03] MEDS: HUMALOG SUBQ SCH ×4 (06:04→22:26)
[2019-02-03] MEDS: HUMULIN 70/30 SUBQ SCH (06:31)
[2019-02-03 07:34] LABS: HEMATOCRIT 32.7 % (42.0-52.0); HEMOGLOBIN 9.8 g/dL (14.0-18.0); MCH 27.3 PG (27-31); MCV 91.1 FL (81-99); MPV 10.8 FL (7.4-10.4); RBC 3.59 XMIL (4.7-6.1); RDW 18.2 % (11.5-14.5); WBC 7.03 X1000 (4.8-10.8)
[2019-02-03 07:58] LABS: AGAP 8; ALB/GLOB RATIO 0.8; ALBUMIN 2.9 g/dL (3.5-5.0); ALKALINE PHOSPHATASE 92 U/L (32-122); BUN 34 mg/dL (8-22); CALCIUM 8.5 mg/dL (8.8-10.2); CHLORIDE 103 mmol/L (98-107); COSMO 300; CREATININE 1.2 mg/dL (0.7-1.2); ESTIMATED GFR > 60; GLUCOSE 258 mg/dL (70-104); GOT 13 U/L (10-34); GPT 10 U/L (10-44); POTASSIUM 3.6 mmol/L (3.5-5.1); SODIUM 142 mmol/L (136-145); TCO2 31 mmol/L (25-35); TOTAL BILIRUBIN 0.25 mg/dL (0.20-1.00); TOTAL PROTEIN 6.5 g/dL (6.3-8.3)
[2019-02-03] MEDS ORDERED: LEXISCAN ONE (08:47)
[2019-02-03] MEDS: FOLIC ACID PO SCH (11:27)
[2019-02-03] MEDS: COREG PO SCH ×2 (11:27→22:18)
[2019-02-03] MEDS: PRILOSEC PO SCH ×2 (11:27→11:29)
[2019-02-03] MEDS: LASIX IV SCH ×2 (11:27→22:18)
[2019-02-03] MEDS: ASPIRIN PO SCH (11:27)
[2019-02-03] MEDS: COZAAR PO SCH (11:27)
[2019-02-03] MEDS: VANCOMYCIN 1,800 MG in NS 250 ML IV SCH (11:32)
[2019-02-03] MEDS: CENTRUM SILVER PO SCH (11:57)
--- NOTE | 2019-02-03 13:35 | Diag Imaging Result Document ---
PROCEDURE NAME: MYOCARDIAL PERF SCAN, STR/REST - 02/03/2019 REFERRING PHYSICIAN: PROCEDURE: Lexiscan Cardiolite stress test. DESCRIPTION OF PROCEDURE: Lexiscan was infused per standard protocol. There was no chest pain. The patient had a walking Lexiscan infusion. Stress electrocardiogram was negative for ischemia. Stress electrocardiogram was nondiagnostic but negative for ischemia. Next, Cardiolite was injected, 10.8 mCi of Cardiolite was injected for the rest phase of the study, and 3.6 mCi of Cardiolite was injected for the stress phase. Gated SPECT images were obtained in standard views. Images revealed chest wall attenuation, and there was motion artifact and diaphragmatic attenuation. Left ventricle is dilated. There is a large size, moderate grade fixed defect in the inferior wall and inferolateral wall diagnostic of infarct or scar. There is reversible perfusion defect in the base of the anterior wall, low grade, suggestive of ischemia. In addition, there is a right ventricular tracer uptake suggestive of a cardiomyopathy picture or a significant 3-vessel disease. Left ventricular ejection fraction by gated SPECT was 36%. There is global hypokinesis. CONCLUSIONS: 1. No chest pain. 2. Negative Lexiscan stress electrocardiogram. 3. Myocardial perfusion images reveal left ventricle was dilated. There is a cardiomyopathy picture. There is a large size, moderate grade fixed defect in the inferior inferolateral wall diagnostic of scar. In addition, there is low grade, low to moderate size, reversible perfusion defect in the base of the anterior wall. There is also low grade reversibility noted in the anterolateral wall. 4. Left ventricular ejection fraction by gated SPECT was 37%. There is global hypokinesis. cc: MD Smith Cavanaugh MD
--- NOTE | 2019-02-03 16:51 | PROGRESS NOTE ---
DATE: 02/03/2019 SUBJECTIVE: Patient reports feeling much better and shortness of breath almost gone, he reports he is able to sleep in a flat position. OBJECTIVE: Vitals: Temperature 97.9 degrees, heart rate 106, respiratory rate 18, blood pressure 124/87, O2 saturation 98% on room air. General: This is a chronically ill- looking 43-year-old male lying in bed in no acute distress. Cardiovascular: S1, S2 heard. No murmurs, gallops, or rubs. Regular rate and rhythm. Respiratory: Clear bilaterally to auscultation. No work of breathing or using accessory muscles. Abdomen: Soft, nontender to palpation. Bowel sounds present. No organomegaly. Extremities: 1+ pitting edema lower extremity. Neurologic: Patient alert, oriented x3, moves 4 extremities. LABORATORY DATA: Reviewed. ASSESSMENT AND PLAN: 1. Acute systolic congestive heart failure. Cardiology is following this patient. Considering his results of the Lexiscan stress test they are going to do left heart catheterization, will see what it shows. 2. Diabetes mellitus type 2, patient on sliding scale insulin and also Humulin 70/30, will continue with the same management. 3. Hyperlipidemia. Will continue with the statin. 4. Hypokalemia resolved. 5. Anemia of chronic disease. The hemoglobin is 9.8, will continue with same management. cc: Bradford Menendez MD [facility]
[2019-02-03 17:05] LABS: HEMOGLOBIN A1C 7.1 % (4.8-6.0)
[2019-02-03] MEDS ORDERED: HUMULIN 70/30 SUBQ SCH ×2 (18:45→21:00)
[2019-02-03] MEDS ORDERED: INSULIN PEN NEEDLES ONE (18:58)
[2019-02-03] MEDS: TRICOR PO SCH (22:18)
[2019-02-03] MEDS: LIPITOR PO SCH (22:18)
[2019-02-04] MEDS: VANCOMYCIN 1,800 MG in NS 250 ML IV SCH ×2 (03:23→23:10)
[2019-02-04] MEDS: HUMALOG SUBQ SCH ×5 (06:06→20:45)
[2019-02-04] MEDS: HUMULIN 70/30 SUBQ SCH (06:08)
[2019-02-04 07:45] LABS: BASO# 0.03 X1000 (0.0-0.2); BASO% 0.5 % (0.0-0.8); EOS# 0.12 X1000 (0.0-0.7); EOS% 1.8 % (0.0-10.0); HEMATOCRIT 33.2 % (42.0-52.0); HEMOGLOBIN 10.1 g/dL (14.0-18.0); IMM GRAN# 0.02 X1000 (0.0-0.04); IMM GRAN% 0.3 % (0.0-0.5); LYMPH# 1.79 X1000 (1.2-3.4); LYMPH% 26.9 % (20.5-51.1); MCH 27.7 PG (27-31); MCHC 30.4 g/dL (33-37); MONO# 0.47 X1000 (0.11-0.59); MONO% 7.1 % (1.7-9.3); MPV 10.9 FL (7.4-10.4); NEUT# 4.22 X1000 (1.4-6.5); NEUT% 63.4 % (42.2-75.2); PLT 277 X1000 (130-400); RBC 3.65 XMIL (4.7-6.1); RDW 17.8 % (11.5-14.5); WBC 6.65 X1000 (4.8-10.8)
[2019-02-04 08:14] LABS: AGAP 7; BUN 34 mg/dL (8-22); CALCIUM 8.7 mg/dL (8.8-10.2); CHLORIDE 102 mmol/L (98-107); COSMO 292; CREATININE 1.2 mg/dL (0.7-1.2); ESTIMATED GFR > 60; GLUCOSE 182 mg/dL (70-104); SODIUM 140 mmol/L (136-145); TCO2 31 mmol/L (25-35)
[2019-02-04] MEDS ORDERED: HEPARIN 1000 UNITS/NS 2,000 UNIT/1,000 ML IV.SOLN ONE (11:24)
[2019-02-04] MEDS ORDERED: NS 100 ML ONE (11:24)
[2019-02-04] MEDS ORDERED: DILAUDID ONE (11:54)
[2019-02-04] MEDS ORDERED: NS 1,000 ML ONE (11:54)
[2019-02-04] MEDS ORDERED: ANESTHESIA PB SET 88 IN 5742 ONE (11:54)
[2019-02-04] MEDS ORDERED: CLAVE TWINSITE 32 IN 11959 ONE (11:54)
[2019-02-04] MEDS ORDERED: VERSED ONE (11:54)
--- NOTE | 2019-02-04 13:42 | CARDIAC CATH REPORT ---
PROCEDURE NAME: - INDICATION: Systolic heart failure. PROCEDURES PERFORMED: 1. Left heart catheterization. 2. Right heart catheterization. 3. Selective coronary angiography. PROCEDURE IN DETAIL: Mr. Tapia was brought to the catheterization laboratory in fasting state. Informed consent was obtained. Prepped in the usual fashion. He was anesthetized over the right femoral area. Initially, cannulization of the right femoral vein was achieved with a wire left in place. Attention was then turned to the right femoral artery. It was cannulated in the modified Seldinger technique and a 5-Mongolian sheath was placed via modified Seldinger technique. The wire from the right femoral vein was then used to thread the sheath over. All sheaths flushed. No apparent complications. The right heart catheterization was performed initially with passing the catheter into wedge position. Thermodilution cardiac outputs were obtained. Pullback measurements of the right ventricle and right atrium were performed. Subsequently the left heart catheterization was performed. Catheter was advanced into the ascending thoracic aorta with coronary angiography performed in multiple views using JL4 and JR4 diagnostic catheters. Left heart catheterization was performed using the JR4. At the conclusion of the procedure, all sheaths and catheters were removed. Pressure was held. CONTRAST: 55 mL of IV contrast. ESTIMATED BLOOD LOSS: 5-10 mL blood loss. COMPLICATIONS: No apparent complications. FINDINGS: 1. The left main originates from the left coronary cusp and is normal. 2. Left anterior descending originates from the left main and is normal. 3. Left circumflex originates from the left main. It appears to be an angiographically normal vessel. 4. The right coronary artery originates from the right coronary cusp. It is a very large dominant right coronary and appears angiographically normal. 5. The aortic blood pressure is 127/82 with a mean of 104. Left ventricle pressure 117/6 with an LVEDP of 19. 6. Right atrial pressure 11. 7. Right ventricular pressure of 44/5 with a filling pressure of 10. 8. PA pressure was 43/20 with a mean of 28. 9. Wedge pressure of 26. 10. Cardiac output was 5.06 with a cardiac index of 2.6. ASSESSMENT: Mr. Tapia is a 43-year-old male who presented and was found to have systolic heart failure. PLAN: Patient has normal coronary arteries. He has an elevated wedge pressure, normal cardiac output with a low normal cardiac index. We will continue to diurese him based on his markedly elevated wedge pressure as well as LV end-diastolic pressure. We will continue to titrate his medications. We will continue on IV diuretics and likely escalate medications tomorrow. He can likely be discharged tomorrow. cc: Howard Braun MD [facility]
[2019-02-04] MEDS: LASIX IV SCH ×3 (14:47→20:53)
[2019-02-04] MEDS: PRILOSEC PO SCH (14:47)
[2019-02-04] MEDS: FOLIC ACID PO SCH (14:48)
[2019-02-04] MEDS: ASPIRIN PO SCH (14:48)
[2019-02-04] MEDS: COREG PO SCH ×2 (14:48→20:45)
[2019-02-04] MEDS: CENTRUM SILVER PO SCH (14:48)
[2019-02-04] MEDS: ENTRESTO 24 MG-26 MG TABLET PO SCH ×2 (14:48→20:45)
--- NOTE | 2019-02-04 15:12 | PROGRESS NOTE ---
DATE: 02/04/2019 SUBJECTIVE: Patient reports feeling fine. Denies any shortness of breath at this time. OBJECTIVE: Vital Signs: Temperature 98.5 degrees, heart rate 95, respiratory rate 15, blood pressure 110/84, O2 saturation 100% on room air. General examination: This is a chronically ill-looking, 43-year-old male, lying in bed, in no acute distress. Cardiovascular: S1, S2 heard. No murmurs, gallops, or rubs. Regular rate and rhythm. Respiratory: Clear bilaterally to auscultation. No work of breathing or using accessory muscles. Abdomen: Soft. Nontender to palpation. Bowel sounds present. No organomegaly. Extremities: No clubbing or cyanosis. Peripheral pulses present in both legs. There is 1+ pitting edema still present. Neurological: Patient is alert and oriented x3. Moves 4 extremities. ASSESSMENT AND PLAN: 1. Acute systolic congestive heart failure. Clinically this patient is doing fine. We have checked the left heart catheterization report with no lesions in the coronary artery. So at this point, we are going to continue with the same management. According to Cardiology, patient can be discharged tomorrow. 2. Diabetes mellitus type 2. Patient is on sliding scale insulin and also Humulin 70/30. Will continue with same management. 3. Hyperlipidemia. We will continue with the statin. 4. Hypokalemia, resolved. 5. Anemia of chronic disease. Hemoglobin is so far stable. We will continue with the same management. cc: Bradford Menendez MD
[2019-02-04] MEDS ORDERED: HUMULIN 70/30 SUBQ SCH (16:00)
[2019-02-04] MEDS: LIPITOR PO SCH (20:45)
[2019-02-04] MEDS: TRICOR PO SCH (20:45)
[2019-02-05 05:42] LABS: AGAP 5; BUN 29 mg/dL (8-22); CALCIUM 8.2 mg/dL (8.8-10.2); CHLORIDE 101 mmol/L (98-107); COSMO 287; ESTIMATED GFR > 60; GLUCOSE 234 mg/dL (70-104); SODIUM 137 mmol/L (136-145); TCO2 31 mmol/L (25-35)
[2019-02-05] MEDS: HUMALOG SUBQ SCH (06:37)
[2019-02-05] MEDS: HUMULIN 70/30 SUBQ SCH (06:37)
[2019-02-05] MEDS ORDERED: INSULIN PEN NEEDLES ONE (06:46)
[2019-02-05 07:40] VITALS: BP 125/88
[2019-02-05] MEDS: ASPIRIN PO SCH (09:06)
[2019-02-05] MEDS: CENTRUM SILVER PO SCH (09:06)
[2019-02-05] MEDS: ENTRESTO 24 MG-26 MG TABLET PO SCH (09:06)
[2019-02-05] MEDS: COREG PO SCH (09:06)
[2019-02-05] MEDS: FOLIC ACID PO SCH (09:06)
[2019-02-05] MEDS: PRILOSEC PO SCH (09:07)
[2019-02-05] MEDS: LASIX IV SCH (09:07)
--- NOTE | 2019-02-05 11:46 | DISCHARGE SUMMARY ---
ADMISSION DATE: 01/30/2019 DISCHARGE DATE: 02/05/2019 ADMISSION DIAGNOSIS: 1. New onset congestive heart failure. 2. Bilateral pleural effusions. 3. Type 1 diabetes mellitus. DISCHARGE DIAGNOSIS: 1. Systolic congestive heart failure, ejection fraction 30% to 35% in the setting of global hypokinesis. 2. Pulmonary hypertension. 3. Type 1 diabetes mellitus. CONSULTATIONS: Cardiology with Hussain Crook MD, Smith Gonsalez MD, and Howard Braun MD. DIAGNOSTIC PROCEDURES AND FINDINGS: EKG 01/30/2019: Sinus tachycardia with first-degree AV block. Chest x-ray 01/30/2019: Bilateral pleural effusions with basilar atelectasis versus pneumonia. Echocardiogram 01/30/2019: Normal LV size with mild LVH, EF 30% to 35% with global hypokinesis. PA pressure by Doppler 85-90 mmHg suggesting severe pulmonary hypertension. Chest x-ray 01/31/2019: Decrease in the size of pleural effusions especially on the right. Chest x-ray 02/01/2019: Bilateral pleural effusion, atelectasis, and mild pulmonary edema. Chest x-ray 02/02/2019: Slight improvement in left pleural effusion. Myocardial perfusion scan 02/03/2019: Dilated LV, cardiomyopathy picture, large moderate grade fixed defect in the inferolateral wall diagnostic of scar. There is also low-grade [id number] size reversal of perfusion defect in the base of the anterior wall. There is also low-grade reversibility noted in the anterolateral wall, EF by gated SPECT was 37% with global hypokinesis. Right and left heart catheterization 02/04/2019: Coronary arteries angiographically normal. Normal cardiac output with a low-normal cardiac index, pulmonary hypertension, and elevated wedge pressure and LVEDP. HOSPITAL COURSE: Mr. Tapia is a 43-year-old type 1 diabetic insulin-controlled, who presented with dyspnea, orthopnea, lower extremity edema, all consistent with congestive heart failure. This had been going on for multiple weeks prior to admission. He was actually in the ER a few weeks prior for the same complaints but did not opt for inpatient admission at that time. When he got to the ER, he was noted to have bilateral pleural effusions on chest x-ray and elevated ProBNP again consistent with congestive heart failure. He was admitted and diuresed, Cardiology was consulted, and initial echocardiogram showed an EF of 30% to 35% with pulmonary hypertension. Diuresis was continued. His type 1 diabetes was treated appropriately with his home insulin and sliding scale insulin. He underwent a myocardial perfusion scan, which did show reversibility as well as confirming EF of 37% by gated SPECT. He underwent a right and left heart catheterization, which showed normal angiographic coronary arteries along with elevated left end- diastolic pressure and elevated wedge pressure. Ultimately, he was diuresed to the point where he was feeling much better, he diuresed multiple liters while he was here. He was started on appropriate heart failure medications and is now stable for discharge home. DISCHARGE MEDICATIONS: Fenofibrate 145 mg p.o. at bedtime, Centrum Silver 1 daily, folic acid 1 mg daily, Humulin 70/30 25 units subcutaneously a.c.b., Humulin 70/30 10 units subcutaneously p.m., Prilosec 40 mg daily, aspirin 81 mg daily, Entresto 24/ 1 p.o. b.i.d., Lasix 40 mg daily, Lipitor 40 mg at bedtime, Coreg 3.125 mg p.o. b.i.d. DISCHARGE DIET: Diabetic. DISCHARGE ACTIVITY: Resume activity as tolerated. DISPOSITION AND OTHER DISCHARGE INSTRUCTIONS: The patient is discharged home to self-care. He is to continue all medications as directed. He is to follow up with Dr. Crook on 02/27/2019. He is to return to the ER or call 911 for worsening complaints or concerns. All questions answered. DISCHARGE TIME: Greater than 35 minutes. Dictated by MANDA Cruz for Bradford Menendez MD Addendum: Patient seen and examined by myself. Agree with MANDA note. It reflects my assessment and plan. Patient is being discharged in stable condition. Will be seen by Culinary Instructor as already scheduled. cc: MANDA Cruz MD William D. Denney, MD Luis N. Villanueva, MD Peter Johnson, MD MTDD
== END 2019-02-05 10:24 | disposition home or self-care (01) | DRG 287 ==
LOC: ED 04:52 → EDIPHOLD 09:17 → SUATTDRO 09:17 → 3N 16:25 → 3S 02-04 13:29
PROVIDERS: ATTEND Internal Medicine
CPT/HCPCS: 71020; 71046; 78452; 80048; 80053; 80061; 80202; 82550; 82728; 82948; 83036; 83540; 83550; 83735; 83880; 84484; 85025; 85027; 85610; 85730; 87040; 93005; 93017; 93306; 93460; 96374; 99285; A9270; A9500; J1170; J1644; J1815; J1940; J2250; J2785; J3370; J7030; J7040; J7050; Q9967; XXXXX